=== PATIENT | female | born 1955 | race Caucasian/White ===

== ENCOUNTER 2019-04-11 07:34 | Emergency (ER) | payer OTHER ==
--- NOTE | 2019-04-11 08:25 | RAD ---
RADIOGRAPH CHEST 1 VIEW: DATE: 04/11/2019 HISTORY: 63-year-old female with syncope. Concern for aspiration. FINDINGS: There are no airspace densities, pulmonary edema, pneumothorax, or cardiomegaly. The lateral costophr enic angles are sharp. IMPRESSION: No acute cardiopulmonary findings.
[2019-04-11 08:43] LABS: #Basophils 0.1 thou/uL (0.0-0.2); #Eosinphils 0.1 thou/uL (0.0-0.7); #Lymphocytes 3.2 thou/uL (1.20-3.40); #Monocytes 0.8 thou/uL (0.11-0.59); #Neutrophils 3.3 thou/uL (1.40-6.50); %Basophils 1.2 % (0.0-1.0); %Eosinophils 1.6 % (0.0-10.0); %Lymphocytes 42.8 % (21.0-51.0); %Monocytes 10.1 % (0.0-10.0); %Neutrophils 44.4 % (42.0-75.0); Mean Corpuscular HGB CONC 32.1 g/dL (32.0-36.0); Mean Corpuscular Hemoglobin 31.4 pg (27.0-31.0); Mean Corpuscular Volume 97.9 fL (78.0-98.0); Mean Platelet Volume 8.5 fL (7.4-10.4); Platelet Count 297 thou/uL (130-400); RBC Distribution Width 12.2 % (11.5-14.5); Red Blood Cell (RBC) Count 4.46 mill/uL (4.20-5.40); White Blood Cell (WBC) Count 7.5 thou/uL (4.8-10.8)
--- NOTE | 2019-04-11 08:46 | CT ---
BRAIN CT WITHOUT IV CONTRAST: Date: 04/11/2019 HISTORY: Syncope and dizziness. Fell and hit head, injury. FINDINGS: Minimal motion artifact. No focal mass or midline shift. No intra or extra-axial hemorrhage. Minimal fluid or mucosal changes in the left sphenoid sinus. The mastoids appear clear. IMPRESSION: 1. No significant acute intracranial process. 2. Minimal fluid or mucosal changes in the left sphenoid sinus. POS: OFF
[2019-04-11 08:56] LABS: ALT (SGPT) 58 U/L (8-55); AST (SGOT) 42 U/L (5-34); Albumin 4.2 g/dL (3.4-4.8); Alkaline Phosphatase 102 U/L (40-110); Anion Gap 14 mmol/L (10-20); BUN (Urea Nitrogen) 18 mg/dL (9.8-20.1); Bilirubin, Total 0.6 mg/dL (0.2-1.2); CK (CPK) 58 U/L (29-168); Calc. Creatinine Clearance 0 mL/min (70-130); Calcium 11.2 mg/dL (7.8-10.44); Carbon Dioxide 26 mmol/L (23-31); Chloride 107 mmol/L (98-107); Estimated GFR-MDRD 65; Globulin 3.2 g/dL (2.4-3.5); Glucose 118 mg/dL (80-115); Potassium 4.3 mmol/L (3.5-5.1); Protein, Total 7.4 g/dL (6.0-8.3); Sodium 143 mmol/L (136-145)
== END 2019-04-11 09:18 | disposition home or self-care (01) ==
LOC: ERS 07:34
DX: R55 Syncope and collapse (principal); E78.5 Hyperlipidemia, unspecified; E78.00 Pure hypercholesterolemia, unspecified; I10 Essential (primary) hypertension; Z79.899 Other long term (current) drug therapy
CPT/HCPCS: 36415; 36416; 70450; 71045; 80053; 82550; 83880; 84484; 85025; 93005

== ENCOUNTER 2019-04-12 21:12 | Inpatient (IN) | payer OTHER ==
[2019-04-12 21:27] LABS: #Basophils 0.1 thou/uL (0.0-0.2); #Eosinphils 0.1 thou/uL (0.0-0.7); #Lymphocytes 4.1 thou/uL (1.20-3.40); #Monocytes 0.9 thou/uL (0.11-0.59); #Neutrophils 4.5 thou/uL (1.40-6.50); %Basophils 0.7 % (0.0-1.0); %Eosinophils 1.3 % (0.0-10.0); %Lymphocytes 42.2 % (21.0-51.0); %Monocytes 9.7 % (0.0-10.0); %Neutrophils 46.1 % (42.0-75.0); Hemoglobin 13.6 g/dL (12.0-16.0); Mean Corpuscular HGB CONC 32.1 g/dL (32.0-36.0); Mean Corpuscular Hemoglobin 31.5 pg (27.0-31.0); Mean Corpuscular Volume 97.9 fL (78.0-98.0); Mean Platelet Volume 8.6 fL (7.4-10.4); Platelet Count 292 thou/uL (130-400); RBC Distribution Width 12.1 % (11.5-14.5); Red Blood Cell (RBC) Count 4.31 mill/uL (4.20-5.40); White Blood Cell (WBC) Count 9.7 thou/uL (4.8-10.8)
[2019-04-12] MEDS ORDERED: Amiodarone 150 MG/3 ML VIAL ONE (21:28)
--- NOTE | 2019-04-12 21:33 | RAD ---
Chest AP view INDICATION: Syncopal episode COMPARISON: April 11, 2019 FINDINGS: Lungs:The lungs are clear Cardiac silhouette:The cardiomediastinal silhouette appears within normal limits. Pulmonary vasculature:Normal Pleural spaces:No pleural effusion or pneumothorax is demonstrated. Upper abdomen:No abnormality seen. Osseous structures: No acute osseous abnormality. Additional findings:There is been interval placement of a pacer pad overlying the right upper chest w all. IMPRESSION: No acute cardiopulmonary abnormality.
[2019-04-12 21:52] LABS: ALT (SGPT) 52 U/L (8-55); AST (SGOT) 29 U/L (5-34); Albumin 4.2 g/dL (3.4-4.8); Alkaline Phosphatase 103 U/L (40-110); Anion Gap 13 mmol/L (10-20); BUN (Urea Nitrogen) 12 mg/dL (9.8-20.1); Bilirubin, Total 0.5 mg/dL (0.2-1.2); CK (CPK) 80 U/L (29-168); Calc. Creatinine Clearance 0 mL/min (70-130); Calcium 10.6 mg/dL (7.8-10.44); Carbon Dioxide 22 mmol/L (23-31); Chloride 106 mmol/L (98-107); Estimated GFR-MDRD 69; Globulin 3.4 g/dL (2.4-3.5); Glucose 99 mg/dL (80-115); Potassium 4.1 mmol/L (3.5-5.1); Protein, Total 7.6 g/dL (6.0-8.3); Sodium 137 mmol/L (136-145)
[2019-04-12] MEDS ORDERED: Amiodarone 450 MG, Admixture Fee 1 EACH in Dextrose 5% in Water 250 ML IVPB SCH (22:00)
[2019-04-12] MEDS ORDERED: Triple Antibiotic Oint 1 GM Packet TOP PRN (23:18)
[2019-04-12 23:29] VITALS: BMI 36.0
[2019-04-12] MEDS ORDERED: Aspirin 325 mg Enteric Coated Tablet PO SCH (23:30)
[2019-04-13] MEDS ORDERED: HYDROcodone/Acetaminophen 5/325 mg Tablet PO PRN (00:52)
[2019-04-13] MEDS ORDERED: Acetaminophen 325 MG TAB PO PRN (00:52)
[2019-04-13] MEDS ORDERED: Labetalol HCl 100 MG/20 ML VIAL SLOW IVP PRN (00:55)
[2019-04-13] MEDS ORDERED: Morphine 2 MG/ML SYRINGE SLOW IVP PRN (00:55)
[2019-04-13] MEDS ORDERED: cloNIDine 0.1 MG TAB PO PRN (00:55)
[2019-04-13] MEDS ORDERED: Furosemide 20 MG TAB PO PRN (01:04)
--- NOTE | 2019-04-13 01:14 | PDOC.HHP ---
Hospitalist HPI - History of Present Illness Syncope History of Present Illness: Patient is a 63 year old female with PMH HTN, HLD who presents to ED for syncope , in ED noted to have many runs of NSVT that corresponded with syncopal episodes a few seconds after. Patient says this started yesterday morning and has become more frequent. Home med list reviewed and includes metoprolol. patient had an investigation for arrhthmia 12 years ago but none was found, she does not have mig tig welder and no known heart rhythms. rhythm strips reviewed and polymorphic. reached out to cardiology Dr Quintanilla who agreed to follow with us and requested echo. patient on amiodarone drip started in ED. ED Course: VITAL SIGNS MonApr 12, 2019 22:46 EMMIE Feldman, Bri BP: 152/70 Pulse: 71 Resp: 19 Temp: 98.4 (Oral) Pain: 0 O2 sat: 98 on (2L Oxygen) Time: 04/12/2019 22:46. Hospitalist ROS - Review of Systems Constitutional: denies: fever, chills, sweats, weakness, malaise, other Eyes: denies: pain, vision change, conjunctivae inflammation, eyelid inflammation, redness, other ENT: denies: ear pain, ear discharge, nose pain, nose discharge, nose congestion , mouth pain, mouth swelling, throat pain, throat swelling, other Respiratory: denies: cough, dry, shortness of breath, hemoptysis, SOB with excertion, pleuritic pain, sputum, wheezing, other Cardiovascular: denies: chest pain, palpitations, orthopnea, paroxysmal noc. dyspnea, edema, light headedness, other Gastrointestinal: denies: nausea, vomiting, abdominal pain, diarrhea, constipation, melena, hematochezia, other Genitourinary: denies: dysuria, frequency, incontinence, hematuria, retention, other Musculoskeletal: denies: neck pain, shoulder pain, arm pain, back pain, hand pain, leg pain, foot pain, other Skin: denies: rash, lesions, lurdes, bruising, other Neurological: denies: weakness, numbness, incoordination, change in speech, confusion, seizures, other - Medication Medications: Active Medications Generic Name Dose Route Start Last Admin Trade Name Freq PRN Reason Stop Dose Admin Magnesium Sulfate 2 gm/ Device 50 mls @ 50 mls/hr 04/13/19 01:15 04/13/19 01: 08 IVPB 04/13/19 03:15 50 mls NOW [facility] Administration Hospitalist History - Past Medical History Other Medical History: htn hld - Past Surgical History Other Surgical History: hysterectomy - Family History Family History: reports: no pertinent history - Social History Smoking Status: Never smoker Alcohol: reports: None Drugs: reports: none - Exam General Appearance: NAD, awake alert Eye: PERRL, anicteric sclera ENT: normocephalic atraumatic, no oropharyngeal lesions, moist mucosa Neck: supple, symmetric, no JVD, no thyromegaly, no lymphadenopathy, no carotid bruit Heart: RRR, no murmur, no gallops, no rubs, normal peripheral pulses Respiratory: CTAB, no wheezes, no rales, no ronchi, normal chest expansion, no tachypnea, normal percussion Gastrointestinal: soft, non-tender, non-distended, normal bowel sounds, no palpable masses, no hepatomegaly, no splenomegaly, no bruit Extremities: no cyanosis, no clubbing, no edema Skin: normal turgor, no lesions, no rashes Neurological: cranial nerve grossly intact, normal sensation to touch, no weakness, no focal deficits, no new deficit Musculoskeletal: normal tone, normal strength, no muscle wasting Psychiatric: normal affect, normal behavior, A&O x 3 Hospitalist Results - Labs Result Diagrams: 04/13/19 03:31 04/13/19 03:31 Lab results: WBC 9.7 thou/uL (4.8-10.8) 04/12/19 21:17 Hgb 13.6 g/dL (12.0-16.0) 04/12/19 21:17 Hct 42.2 % (36.0-47.0) 04/12/19 21:17 MCV 97.9 fL (78.0-98.0) 04/12/19 21:17 Plt Count 292 thou/uL (130-400) 04/12/19 21:17 Neutrophils % 46.1 % (42.0-75.0) 04/12/19 21:17 Sodium 137 mmol/L (136-145) 04/12/19 21:17 Potassium 4.1 mmol/L (3.5-5.1) 04/12/19 21:17 Chloride 106 mmol/L (98-107) 04/12/19 21:17 Carbon Dioxide 22 mmol/L (23-31) L 04/12/19 21:17 BUN 12 mg/dL (9.8-20.1) 04/12/19 21:17 Creatinine 0.83 mg/dL (0.6-1.1) 04/12/19 21:17 Glucose 99 mg/dL (80-115) 04/12/19 21:17 Calcium 10.6 mg/dL (7.8-10.44) H 04/12/19 21:17 Total Bilirubin 0.5 mg/dL (0.2-1.2) 04/12/19 21:17 AST 29 U/L (5-34) 04/12/19 21:17 ALT 52 U/L (8-55) 04/12/19 21:17 Alkaline Phosphatase 103 U/L (40-110) 04/12/19 21:17 Creatine Kinase 80 U/L (29-168) 04/12/19 21:17 Troponin I 0.018 ng/mL (< 0.028) 04/12/19 21:17 B-Natriuretic Peptide 116.7 pg/mL (0-100) H 04/12/19 21:17 Serum Total Protein 7.6 g/dL (6.0-8.3) 04/12/19 21:17 Albumin 4.2 g/dL (3.4-4.8) 04/12/19 21:17 - EKG Interpretation EKG: rhythm strip w/ polymorphic VT. Hospitalist H&P A/P - Plan Plan: Patient is a 63 year old female with PMH HTN, HLD who presents to ED for syncope. # syncope - in setting of persistent symptomatic nonsustained polymorphic VT - very dangerous and high risk of arrest, will watch in ICU, pads in place on chest in case of arrest - trend BMP/Mg and give empiric mag sulfate now, with goal K of 4 and Mg of 2 - on amiodarone drip, will give IV metoprolol and restart PO metoprolol as well - discussed with Dr Quintanilla who will see in AM, also consult placed for EP service as well # HTN - PRNs ordered, resume home meds # HLD - continue home medications
[2019-04-13] MEDS ORDERED: Metoprolol Tartrate 100 MG TAB PO SCH ×2 (01:15→09:00)
[2019-04-13] MEDS ORDERED: Magnesium 2 GM/50 ML 2 GM in Premix Bag 1 BAG IVPB SCH (01:15)
[2019-04-13] MEDS ORDERED: Metoprolol Tartrate 5 MG/5 ML VIAL IVP SCH (01:15)
[2019-04-13 04:17] LABS: #Lymphocytes 2.6 thou/uL (1.20-3.40); #Monocytes 0.8 thou/uL (0.11-0.59); #Neutrophils 6.4 thou/uL (1.40-6.50); %Basophils 0.5 % (0.0-1.0); %Eosinophils 0.2 % (0.0-10.0); %Lymphocytes 26.5 % (21.0-51.0); %Monocytes 8.2 % (0.0-10.0); %Neutrophils 64.7 % (42.0-75.0); Hemoglobin 13.1 g/dL (12.0-16.0); Mean Corpuscular HGB CONC 32.2 g/dL (32.0-36.0); Mean Corpuscular Hemoglobin 31.5 pg (27.0-31.0); Mean Platelet Volume 8.9 fL (7.4-10.4); Platelet Count 279 thou/uL (130-400); RBC Distribution Width 11.9 % (11.5-14.5); Red Blood Cell (RBC) Count 4.16 mill/uL (4.20-5.40); White Blood Cell (WBC) Count 9.9 thou/uL (4.8-10.8)
[2019-04-13 04:32] LABS: Anion Gap 11 mmol/L (10-20); BUN (Urea Nitrogen) 10 mg/dL (9.8-20.1); Calc. Creatinine Clearance 114 mL/min (70-130); Calcium 9.9 mg/dL (7.8-10.44); Carbon Dioxide 25 mmol/L (23-31); Chloride 105 mmol/L (98-107); Estimated GFR-MDRD 77; Glucose 110 mg/dL (80-115); Magnesium 2.6 mg/dL (1.6-2.6); Sodium 137 mmol/L (136-145)
[2019-04-13] MEDS: Amiodarone 450 MG in Dextrose 5% in Water 250 ML IVPB SCH ×2 (08:11→22:51)
[2019-04-13 08:55] LABS: Troponin I Less than 0.010 ng/mL (< 0.028)
[2019-04-13] MEDS ORDERED: Lisinopril 20 MG TAB PO SCH (09:00)
[2019-04-13] MEDS ORDERED: Metoprolol Tartrate 50 MG TAB PO SCH (09:00)
--- NOTE | 2019-04-13 09:18 | CON ---
DATE OF CONSULTATION: HISTORY: Zabrina Sanchez is a 63-year-old white female, who had her first episode of syncope on April 11, 2019. Her was here at [facility] with a myocardial infarction. She was in the cafeteria pouring coffee. She became dizzy and then fell to the floor. She was taken to the emergency room. An EKG showed left bundle-branch block. She states her last EKG was probably several years ago and she has never been told that she had an abnormal EKG. She was evaluated in the Emergency Room and then released home. Then, yesterday, she again had an episode of syncope while sitting in her chair at home. Paramedics were called. She was brought to the emergency room. In the emergency room, she was seen to have short runs of ventricular tachycardia and some of the episodes looked like torsade. Rate was approximately 300 per minute. She was started on amiodarone protocol with 150 mg bolus followed by drip. She also at times will have episodes of bradycardia with heart rates in the 50s, on metoprolol 100 b.i.d. She denies any previous cardiac problems. She denies any chest discomfort. At times, she will be short of breath and has started on albuterol neb treatments at home in November 2018. PAST MEDICAL HISTORY: Hypertension, hypercholesterolemia. MEDICATIONS: At home include: 1. Atorvastatin 10 daily. 2. Furosemide 20 mg p.r.n. 3. Lisinopril 20 mg daily. 4. Metoprolol 100 b.i.d. ALLERGIES: NONE. PAST SURGICAL HISTORY: Hysterectomy. SOCIAL HISTORY: She does not smoke or drink. FAMILY HISTORY: Father of myocardial infarction in his 40s. REVIEW OF SYSTEMS: A 10-point review of systems is otherwise unremarkable. PHYSICAL EXAMINATION: VITAL SIGNS: Blood pressure 151/83, pulse of 45. HEENT: PERRL. NECK: Supple. CHEST: Clear. CARDIAC: S1 and S2 normal without any S3, S4, or murmurs. Carotid upstrokes normal without bruits. ABDOMEN: Normal bowel sounds without tenderness. The abdomen is obese. EXTREMITIES: Revealed no clubbing, cyanosis, or edema. NEUROLOGIC: Grossly intact. SKIN: Warm and dry. LABORATORY DATA: EKG reveals normal sinus rhythm with left bundle-branch block. CBC is unremarkable. Sodium 137, potassium 4.0, chloride 105, carbon dioxide 25 , BUN 10, creatinine 0.76. BNP 116.7. Troponin I x1 is normal. IMPRESSION: 1. Ventricular tachycardia with rate of 300 per minute with at times looking like torsades de pointes. 2. Left bundle branch block, which apparently is new since she has never been told that her EKG has been abnormal in the past. 3. Hypertension. 4. Bradycardia with heart rates into the 40s at times. 6. Positive family of CAD. 5. Hypercholesterolemia. 7. Obesity. RECOMMENDATIONS: Another set of cardiac enzymes will be ordered. Echocardiogram will be performed. Fasting lipid profile will be performed. She is bradycardic at times and certainly may have left ventricular dysfunction, so I will change her to lower beta blocking with carvedilol and increase her lisinopril to b.i.d. With this arrhythmia, her coronary arteries need to be evaluated to rule out ischemia as a cause of this arrhythmia. Risks of cardiac catheterization were discussed including , myocardial infarction, dye reaction, vascular injury, CVA, transfusion, limb loss, renal loss, etc. Also risk of intervention with PTCA and stent placement were discussed including , myocardial infarction, emergent CABG, restenosis, stent thrombosis, vessel perforation, etc. She has never had gastrointestinal bleeding or stroke. She has no upcoming surgical procedures planned and a drug-eluting stent will be placed if needed. She certainly may require a biventricular defibrillator. She will be continued on the amiodarone. Job ID: [id number] [facility]
[2019-04-13] MEDS: Polyethylene Glycol 3350 17 GM Packet PO SCH (09:26)
[2019-04-13] MEDS: Lisinopril 20 MG TAB PO SCH ×3 (09:45→22:12)
[2019-04-13] MEDS: Atorvastatin Calcium 10 MG TAB PO SCH (09:45)
[2019-04-13] MEDS: Enoxaparin Sodium 40 MG/0.4 ML SYRINGE SC SCH (09:46)
[2019-04-13] MEDS ORDERED: Communication Order-Pharmacy FS SCH (11:30)
--- NOTE | 2019-04-13 15:32 | CON ---
DATE OF CONSULTATION: 04/13/2019 SERVICE: Pulmonary Medicine. REASON FOR CONSULTATION: ICU patient. HISTORY OF PRESENT ILLNESS: The patient is a 63-year-old white female with past medical history significant for essentially nothing. She presented to the emergency department because of a couple of syncopal events that happened recently. The first one happened while she was visiting her in the hospital. She was taken down to the emergency department. She was put on telemetry for a period of time, but no abnormalities were identified and she was subsequently discharged home. Shortly after she got home, she had a larger syncopal event. There was concern that she may have even lost pulse briefly. Either way, she did wake back up. In the emergency department, she was discovered to have ventricular tachycardia that was coming and going. There was a torsades morphology. She was started on amiodarone drip, and tucked into the ICU. Pulmonary will follow along while she remains in-house. PAST MEDICAL HISTORY: 1. Hypertension. 2. Dyslipidemia. PAST SURGICAL HISTORY: Hysterectomy. FAMILY HISTORY: Noncontributory. SOCIAL HISTORY: Negative for alcohol, tobacco, or illicit drug use. She is a lifelong nonsmoker and has no exposure to chemicals, dust, asbestos, or tuberculosis. ALLERGIES: NO KNOWN DRUG ALLERGIES. MEDICATIONS: List of her inpatient medications was reviewed. No specific updates were made at this time. REVIEW OF SYSTEMS: General, head, ears, eyes, nose, throat, cardiovascular, respiratory, GI, , musculoskeletal, neurologic, and skin is negative except as mentioned in the HPI. PHYSICAL EXAMINATION: VITAL SIGNS: Afebrile; pulse 49; blood pressure 106/88; respirations 19; and saturation 97%, currently on 2 L nasal cannula. GENERAL: The patient is awake and alert, in no apparent distress. LUNGS: Wonderful air entry. No crackles, wheezing, or rhonchi are appreciated. HEART: Bradycardic. Regular. ABDOMEN: Soft, nontender, and nondistended. Bowel sounds are positive. MUSCULOSKELETAL: No cyanosis or clubbing. No pitting in bilateral lower extremities. NEUROLOGIC: Grossly nonfocal. LABORATORY DATA: WBC 9.9, hemoglobin 13.1, and platelets 279,000. Basic metabolic profile and liver function studies are unremarkable. BNP 116. Troponin negative x2. IMAGING DATA: 1. Chest x-ray demonstrates no acute cardiopulmonary abnormality. Pacer pads overlying chest. Soft tissue attenuation is present. 2. Echocardiogram demonstrates reduced ejection fraction. ASSESSMENT: 1. Syncope secondary to nonsustained ventricular tachycardia with torsades morphology. 2. Systolic heart failure, likely chronic. 3. Obstructive sleep apnea, likely. DISCUSSION AND PLAN: The patient will remain in the ICU until her cardiac catheterization can be arranged. She is currently on an amiodarone drip and has no specific complaints. I encouraged her discuss either nocturnal oximetry screen for sleep apnea or an actual polysomnogram when she leaves the hospital. Pulmonary will follow in this location, but I think given the severity of her underlying illness and multiple syncopal events, staying in the ICU would be prudent. 70 minutes have been devoted to this patient in various activities. I personally reviewed all imaging studies and laboratory data noted within this document. For fifty percent of this time, I was interacting with the patient at the bedside or coordinating care with the care team. For the remainder of the time I was immediately available to the patient in the hospital unit. Job ID: [id number] [facility]
[2019-04-13] MEDS: Carvedilol 6.25 MG TAB PO SCH (16:20)
[2019-04-14 03:58] LABS: #Basophils 0.1 thou/uL (0.0-0.2); #Eosinphils 0.1 thou/uL (0.0-0.7); #Lymphocytes 3.2 thou/uL (1.20-3.40); #Monocytes 1.2 thou/uL (0.11-0.59); %Basophils 0.7 % (0.0-1.0); %Eosinophils 1.1 % (0.0-10.0); %Lymphocytes 30.1 % (21.0-51.0); %Monocytes 11.1 % (0.0-10.0); %Neutrophils 57.1 % (42.0-75.0); Hemoglobin 12.8 g/dL (12.0-16.0); Mean Corpuscular HGB CONC 31.7 g/dL (32.0-36.0); Mean Corpuscular Volume 97.7 fL (78.0-98.0); Mean Platelet Volume 9.1 fL (7.4-10.4); Platelet Count 231 thou/uL (130-400); Red Blood Cell (RBC) Count 4.14 mill/uL (4.20-5.40); White Blood Cell (WBC) Count 10.5 thou/uL (4.8-10.8)
[2019-04-14 04:17] LABS: Anion Gap 12 mmol/L (10-20); BUN (Urea Nitrogen) 12 mg/dL (9.8-20.1); Calc. Creatinine Clearance 110 mL/min (70-130); Calcium 9.9 mg/dL (7.8-10.44); Carbon Dioxide 22 mmol/L (23-31); Cardiac Risk 3.7 (Less than 4.5); Chloride 106 mmol/L (98-107); Cholesterol 142 mg/dl (< 200 Desired); Estimated GFR-MDRD 74; Glucose 101 mg/dL (80-115); HDL Cholesterol 38 mg/dL (>60 Neg Risk); LDL Cholesterol, Calculated 85 mg/dL; Magnesium 2.3 mg/dL (1.6-2.6); Potassium 3.9 mmol/L (3.5-5.1); Sodium 136 mmol/L (136-145); Triglycerides 93 mg/dL (Less than 150)
[2019-04-14] MEDS: Atorvastatin Calcium 10 MG TAB PO SCH (09:08)
[2019-04-14] MEDS: Enoxaparin Sodium 40 MG/0.4 ML SYRINGE SC SCH (09:09)
[2019-04-14] MEDS: Lisinopril 20 MG TAB PO SCH ×2 (09:09→20:53)
[2019-04-14] MEDS: Polyethylene Glycol 3350 17 GM Packet PO SCH (09:09)
--- NOTE | 2019-04-14 10:04 | PRG ---
DATE OF SERVICE: 04/14/2019 SUBJECTIVE: She feels better today. No chest discomfort or dyspnea has improved. She has no orthopnea or edema. No syncope or falls. OBJECTIVE: GENERAL: Well dressed and groomed, in no apparent distress. VITAL SIGNS: Temperature 98.1, blood pressure 108/53, pulse 50, respiratory rate 12, oxygen saturation 95% on 2 L nasal cannula. HEENT: No lesions. Sclerae are clear. SKIN: No lesions. CARDIOVASCULAR: Regular rate and rhythm. No murmurs, gallops, or rubs. LUNGS: Clear to auscultation bilaterally. Normal respiratory effort. EXTREMITIES: No cyanosis, clubbing, or edema. DIAGNOSTIC STUDIES: Telemetry, sinus rhythm. IMPRESSION: 1. Syncope due to polymorphic ventricular tachycardia, which was documented during a syncopal episode on telemetry. 2. Acute on chronic systolic heart failure. 3. Left bundle-branch block. 4. Sick sinus syndrome with symptomatic bradycardia, need for pacemaker support. Recommend await cardiac catheterization results tomorrow as performed by Dr. Quintanilla. PLAN: 1. EDUCATION COURSES SALES REPRESENTATIVE-D implantation tomorrow based on the results of the catheterization. 2. Hold Lovenox after this morning's dose. Job ID: [id number]
[2019-04-14] MEDS ORDERED: Aspirin 325 MG TAB PO SCH (10:45)
[2019-04-14] MEDS: Carvedilol 6.25 MG TAB PO SCH (10:46)
[2019-04-14] MEDS: Amiodarone 450 MG in Dextrose 5% in Water 250 ML IVPB SCH (11:31)
--- NOTE | 2019-04-14 11:34 | PDOC.HOSPP ---
- Subjective Subjective: Seen and examined in the intensive care unit. Breathing comfortably on room air. Slept well. No acute complaints this morning and states that she is feeling better. Echocardiogram with reduced ejection fraction. Patient with bradycardia, and episodes of ventricular tachycardia with syncopal episodes. May benefit from pacemaker placement. - Objective Vital Signs & Weight: Vital Signs (12 hours) Temp BP Pulse Ox 04/14/19 10:46 116/56 L 04/14/19 09:09 116/56 L 04/14/19 08:00 98.1 F 95 04/14/19 04:00 98.8 F 04/14/19 00:00 98.7 F Weight Admit Weight 209 lb 14.081 oz Weight 209 lb 14.081 oz Most Recent Monitor Data Heart Rate from ECG 51 NIBP 130/57 NIBP BP-Mean 81 Respiration from ECG 20 SpO2 94 I&O: 04/13/19 04/14/19 04/15/19 06:59 06:59 06:59 Intake Total 244 1497.1 325 Output Total 400 1120 0 Balance -156 377.1 325 Result Diagrams: 04/14/19 03:31 04/14/19 03:31 Radiology Reviewed by me: Yes Hospitalist ROS - Review of Systems All other systems reviewed; all pertinent +/- noted in HPI/Subj - Medication Medications: Active Medications Generic Name Dose Route Start Last Admin Trade Name Freq PRN Reason Stop Dose Admin Acetaminophen 650 mg 04/13/19 00:52 04/13/19 21:15 Tylenol PO 650 mg Q4H PRN Administration Headache/Fever/Mild Pain (1-3) Aspirin 325 mg 04/14/19 10:45 04/14/19 10:58 Aspirin PO 04/14/19 12:00 325 mg 1045 KAYCEE Administration Atorvastatin Calcium 10 mg 04/13/19 09:00 04/14/19 09:08 Lipitor PO 10 mg DAILY KAYCEE Administration Amiodarone HCl 450 mg/ 259 mls @ 0 mls/hr 04/13/19 01:00 04/14/19 11:31 Dextrose/Water IVPB 259 mls INF KAYCEE Administration Protocol Per Protocol Lisinopril 20 mg 04/13/19 09:00 04/14/19 09:09 Zestril PO 20 mg BID KAYCEE Administration Pantoprazole Sodium 40 mg 04/13/19 09:00 04/14/19 09:09 Protonix PO 40 mg DAILY KAYCEE Administration Polyethylene Glycol 17 gm 04/13/19 09:00 04/14/19 09:09 Miralax PO 17 gm DAILY KAYCEE Administration - Exam General Appearance: NAD, awake alert Eye: anicteric sclera ENT: normocephalic atraumatic, moist mucosa Neck: supple, symmetric, no lymphadenopathy Heart: no murmur, no gallops, no rubs Respiratory: CTAB, no wheezes, no rales, no tachypnea Gastrointestinal: soft, non-tender, no rigidity Extremities: no edema Skin: no lesions Neurological: cranial nerve grossly intact, no focal deficits Musculoskeletal: no muscle wasting Psychiatric: normal affect, A&O x 3 Hosp A/P (1) Sick sinus syndrome Code(s): I49.5 - SICK SINUS SYNDROME Status: Acute (2) CHF (congestive heart failure) Code(s): I50.9 - HEART FAILURE, UNSPECIFIED Status: Acute (3) Syncope and collapse Code(s): R55 - SYNCOPE AND COLLAPSE Status: Acute (4) Ventricular tachycardia Code(s): I47.2 - VENTRICULAR TACHYCARDIA Status: Acute (5) HTN (hypertension) Code(s): I10 - ESSENTIAL (PRIMARY) HYPERTENSION Status: Acute (6) HLD (hyperlipidemia) Code(s): E78.5 - HYPERLIPIDEMIA, UNSPECIFIED Status: Acute - Plan Plan: intensive care unit cardiology consultation, recommendations appreciated treasury specialist consultation, recommendations appreciated pulmonology consultation, recommendations appreciated plan for cardiac catheterization the a.m. echocardiogram with a reduced ejection fraction of 45% may require pacemaker pending EP eval and cath results blood pressure control blood sugar control DVT prophylaxis G.I. prophylaxis
--- NOTE | 2019-04-14 15:12 | PRG ---
DATE OF SERVICE: 04/14/2019 SERVICE: Pulmonary Medicine. INTERVAL HISTORY: The patient is doing great from respiratory standpoint. She has not had any additional ventricular ectopy. That being said, she remains in a sinus bradycardia. Coreg was held this morning. She is alert. No other complaints. She is waiting for cardiac catheterization which is being scheduled for tomorrow. PHYSICAL EXAMINATION: VITAL SIGNS: Afebrile, pulse 48, blood pressure 114/57, respirations 19, saturation 94%, currently on 2 L nasal cannula. GENERAL: The patient is awake and alert, in no apparent distress. LUNGS: One full air entry with no prolonged expiratory phase or wheezing. HEART: Normal rate, regular. ABDOMEN: Soft, nontender, nondistended, bowel sounds are positive. MUSCULOSKELETAL: No cyanosis or clubbing. No pitting in the bilateral lower extremities. NEUROLOGIC: Grossly nonfocal. LABORATORY DATA: WBC 10.5, hemoglobin 12.8, and platelets 231,000. Basic metabolic profile is otherwise unremarkable. Troponin is below the assay limit of 0.10. ASSESSMENT: 1. Syncope secondary to nonsustained ventricular tachycardia with torsades morphology. 2. Chronic systolic heart failure, suspected. 3. Obstructive sleep apnea, likely. DISCUSSION AND PLAN: The patient is doing fine from respiratory standpoint. She will be moving down for cardiac catheterization likely in the morning. She will remain on the amiodarone drip. Blood pressures remain firm despite having a little bradycardia. Pulmonary/Critical Care will continue to follow closely. Job ID: [id number]
--- NOTE | 2019-04-14 15:55 | CON ---
DATE OF CONSULTATION: 04/13/2019 PRIMARY CARE PHYSICIAN: Domingo Stanley. REFERRING SPORTS MARKETING SPECIALIST: Darryl Quintanilla MD REASON FOR CONSULTATION: Syncope, polymorphic ventricular tachycardia. HISTORY OF PRESENT ILLNESS: Ms. Sanchez is a pleasant 63-year-old white female with a history of hypertension. She has had three episodes of syncope in the last 3 days. Her was hospitalized here 3 days ago. She was in the cafeteria pouring herself some coffee and had a syncopal episode without prodrome. She was evaluated in the emergency department and released. At home, she had another syncopal episode, where she felt flushed and hot feeling in her head. She had a brief syncopal episode while sitting in her recliner and had loss of bladder function. On admission here, she had episode of documented polymorphic ventricular tachycardia associated with syncope. Again, she had a prodrome of feeling flushed and fullness in her head. She was started on amiodarone and placed in the ICU. In addition, she has been bradycardic. Current heart rate is 46. She has not had any atrial arrhythmias. She has moderate daily fatigue. No exacerbating or alleviating factors. She has mild exertional dyspnea that is relieved with rest. This is chronic and is unchanged recently. She is not on any medications that would cause her to have polymorphic ventricular tachycardia. Electrolytes were normal. PAST MEDICAL HISTORY: 1. Hypertension. 2. Dyslipidemia. PAST SURGICAL HISTORY: Hysterectomy. FAMILY HISTORY: Negative for sudden cardiac . SOCIAL HISTORY: She is . They live [place], they have horses. She is very active with her horses and her garden. Her is being evaluated for CABG next week. She has never smoked. No alcohol. 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 ALLERGIES: NO KNOWN DRUG ALLERGIES. MEDICATIONS: Reviewed. REVIEW OF SYSTEMS: No fever, chills, orthopnea, edema, seizures, stroke, melena , bright red blood per rectum, hematemesis, unilateral weakness or numbness, speech deficits. PHYSICAL EXAMINATION: GENERAL: Alert and oriented x4. No apparent distress. Well dressed and groomed. VITAL SIGNS: Afebrile. Blood pressure 121/61, pulse 45, respiratory rate 12. WBC 9.9, hemoglobin 13.1, platelets 279. Sodium 137, potassium 4.0, BUN 10, creatinine 0.7, glucose 110. EKG, sinus bradycardia with left bundle branch block. QRS duration 120 milliseconds. Echocardiogram, April 13, 2019, mild left atrial enlargement. Ejection fraction 45% to 50% with normal valves. IMPRESSION AND PLAN: 1. Syncope, three episodes in the last three days. 2. Polymorphic ventricular tachycardia, no reversible causes identified. 3. Chronic systolic heart failure due to cardiomyopathy. Mildly depressed left ventricular function. 4. LBBB RECOMMENDATIONS: Catheterization is planned by Dr. Quintanilla on Monday. Based on the results of the catheterization, we will plan FITNESS TECHNICIAN-D therapy if there is no percutaneous coronary intervention. I have discussed risks, benefits, and alternatives of ICD implantation including, but not limited to myocardial infarction, stroke, , pneumothorax, need for chest tube placement, lead dislodgement, arm swelling due to thrombosis, pain, infection, need for device removal. She is agreeable to proceed. We have participated in shared decision making. Job ID: [id number] [facility]
[2019-04-14] MEDS ORDERED: Carvedilol 6.25 MG TAB PO SCH (17:00)
[2019-04-14] MEDS ORDERED: Carvedilol 3.125 MG TAB PO SCH (20:45)
[2019-04-15] MEDS: Amiodarone 450 MG in Dextrose 5% in Water 250 ML IVPB SCH (03:04)
[2019-04-15 03:48] LABS: #Basophils 0.1 thou/uL (0.0-0.2); #Eosinphils 0.1 thou/uL (0.0-0.7); #Lymphocytes 2.7 thou/uL (1.20-3.40); #Monocytes 1.1 thou/uL (0.11-0.59); %Basophils 0.6 % (0.0-1.0); %Eosinophils 1.5 % (0.0-10.0); %Lymphocytes 27.2 % (21.0-51.0); %Monocytes 10.9 % (0.0-10.0); %Neutrophils 59.9 % (42.0-75.0); Hemoglobin 12.5 g/dL (12.0-16.0); Mean Corpuscular HGB CONC 30.9 g/dL (32.0-36.0); Mean Corpuscular Hemoglobin 29.8 pg (27.0-31.0); Mean Corpuscular Volume 96.4 fL (78.0-98.0); Mean Platelet Volume 9.1 fL (7.4-10.4); Platelet Count 237 thou/uL (130-400); RBC Distribution Width 11.9 % (11.5-14.5); Red Blood Cell (RBC) Count 4.18 mill/uL (4.20-5.40)
[2019-04-15 03:55] LABS: Prothrombin Time 13.6 SEC (12.0-14.7)
[2019-04-15 04:07] LABS: Anion Gap 11 mmol/L (10-20); BUN (Urea Nitrogen) 11 mg/dL (9.8-20.1); Calc. Creatinine Clearance 110 mL/min (70-130); Carbon Dioxide 26 mmol/L (23-31); Chloride 106 mmol/L (98-107); Estimated GFR-MDRD 74; Glucose 93 mg/dL (80-115); Magnesium 2.2 mg/dL (1.6-2.6); Potassium 3.7 mmol/L (3.5-5.1); Sodium 139 mmol/L (136-145)
[2019-04-15] MEDS: Carvedilol 3.125 MG TAB PO SCH ×2 (05:51→20:54)
[2019-04-15] MEDS: Lisinopril 20 MG TAB PO SCH ×2 (05:51→20:54)
[2019-04-15] MEDS: Atorvastatin Calcium 10 MG TAB PO SCH (05:52)
[2019-04-15] MEDS ORDERED: Sodium Chloride 0.9% 1,000 ML IV SCH ×2 (06:00→14:05)
[2019-04-15] MEDS ORDERED: Aspirin 325 mg Enteric Coated Tablet PO SCH (09:00)
[2019-04-15] MEDS: Polyethylene Glycol 3350 17 GM Packet PO SCH (09:00)
[2019-04-15] MEDS ORDERED: PROPOFOL 200 MG/20 ML VIAL ONE (09:05)
[2019-04-15] MEDS ORDERED: PHENYLEPHRINE-NS 100 MCG/ML 10 ML SYRINGE ONE (09:05)
[2019-04-15] MEDS ORDERED: Iopamidol 370 76% 100 ML VIAL ONE (12:01)
[2019-04-15] MEDS ORDERED: Heparin 10,000 UNITS/1 ML VIAL ONE (12:11)
[2019-04-15] MEDS ORDERED: Lidocaine 1% (PF) 30 ML VIAL ONE (12:15)
[2019-04-15] MEDS ORDERED: Fentanyl 100 MCG/2 ML VIAL ONE ×3 (12:49→17:44)
[2019-04-15] MEDS ORDERED: Midazolam HCl 2 mg/2 ml Vial ONE ×3 (12:49→17:44)
[2019-04-15] MEDS ORDERED: hydrALAZINE 20 MG/ML VIAL ONE (13:12)
[2019-04-15] MEDS ORDERED: Acetaminophen/Codeine 30-300mg Tablet PO PRN ×2 (14:03)
[2019-04-15] MEDS ORDERED: Sodium Chloride 0.9% 200 ML IV PRN (14:03)
--- NOTE | 2019-04-15 14:13 | PRG ---
DATE OF SERVICE: 04/15/2019 SERVICE: Pulmonary Medicine. INTERVAL HISTORY: Yesterday, the patient was doing fantastic. She ended up getting up to the bathroom. She had a run of ventricular tachycardia. She got lightheaded, but this time she did not pass out. Ultimately, she was put back in bed, she is now on bed rest. She is not exactly excited about that. That being said, she understands our precautions. Otherwise, there are no fevers, chills, cough, sputum production, nausea, vomiting, or diarrhea happened overnight. PHYSICAL EXAMINATION: VITAL SIGNS: Afebrile, pulse 60, blood pressure 166/82, respirations 16, saturations 94%, currently on room air. GENERAL: The patient is awake and alert, in no apparent distress. LUNGS: Wonderful air entry. No prolonged expiratory phase or wheezing is present. HEART: Normal rate, regular. ABDOMEN: Soft, nontender, and nondistended. Bowel sounds are positive. MUSCULOSKELETAL: No cyanosis or clubbing. No pitting in the bilateral lower extremities. NEUROLOGIC: Grossly nonfocal. LABORATORY DATA: WBC 10.0, hemoglobin 12.5, platelets 237,000. INR 1.0. Basic metabolic profile is completely unremarkable. ASSESSMENT: 1. Syncope secondary to presumed ventricular tachycardia with torsades morphology. 2. Chronic systolic heart failure. 3. Obstructive sleep apnea. DISCUSSION AND PLAN: The patient is doing fine from respiratory standpoint. At this point, she will remain in the ICU until cleared for transition to the telemetry unit by either EP or Cardiology. I will continue to follow if she remains in this location. When she arrives on the floor, I will sign off. Job ID: [id number]
[2019-04-15] MEDS ORDERED: Iopamidol 370 76% 50 ML VIAL FS ONE (14:23)
[2019-04-15] MEDS: hydrALAZINE 20 MG/ML VIAL SLOW IVP PRN ×2 (14:38→20:55)
[2019-04-15] MEDS ORDERED: Loratadine 10 MG TAB PO SCH (14:45)
[2019-04-15] MEDS ORDERED: Vancomycin 1.5 GRAM/300 ML BAG 1.5 GM in Premix Bag 1 BAG IVPB SCH (16:00)
--- NOTE | 2019-04-15 16:59 | PDOC.HOSPP ---
- Subjective Encounter Date: 04/15/19 Encounter Time: 08:00 Subjective: Overnight had another vtach run and dizziness episode. This morning, laying in bed comfortably and has no complaints. Pending cardiac catheter - Objective Vital Signs & Weight: Vital Signs (12 hours) Temp Pulse BP Pulse Ox 04/15/19 16:00 98.4 F 04/15/19 14:38 71 182/72 H 04/15/19 12:00 98.5 F 04/15/19 08:00 98.4 F 96 04/15/19 05:51 136/71 Weight Admit Weight 209 lb 14.081 oz Weight 209 lb 14.081 oz Most Recent Monitor Data Heart Rate from ECG 90 NIBP 165/72 NIBP BP-Mean 103 Respiration from ECG 17 SpO2 93 I&O: 04/14/19 04/15/19 04/16/19 06:59 06:59 06:59 Intake Total 1497.1 903 0 Output Total 1120 1425 845 Balance 377.1 -522 -845 Result Diagrams: 04/15/19 03:17 04/15/19 03:17 Hospitalist ROS - Review of Systems Respiratory: denies: cough, dry, shortness of breath, hemoptysis, SOB with excertion, pleuritic pain, sputum, wheezing, other Cardiovascular: denies: chest pain, palpitations, orthopnea, paroxysmal noc. dyspnea, edema, light headedness, other Gastrointestinal: denies: nausea, vomiting, abdominal pain, diarrhea, constipation, melena, hematochezia, other Genitourinary: denies: dysuria, frequency, incontinence, hematuria, retention, other Neurological: denies: weakness, change in speech - Medication Medications: Active Medications Generic Name Dose Route Start Last Admin Trade Name Freq PRN Reason Stop Dose Admin Acetaminophen 650 mg 04/13/19 00:52 04/13/19 21:15 Tylenol PO 650 mg Q4H PRN Administration Headache/Fever/Mild Pain (1-3) Carvedilol 3.125 mg 04/15/19 08:00 04/15/19 05:51 Coreg PO 3.125 mg BID-WM KAYCEE Administration Hydralazine HCl 10 mg 04/13/19 00:55 04/15/19 14:38 Apresoline SLOW IVP 10 mg Q6H PRN Administration SBP GREATER THAN 160 Amiodarone HCl 450 mg/ 259 mls @ 0 mls/hr 04/13/19 01:00 04/15/19 03:04 Dextrose/Water IVPB 259 mls INF KAYCEE Administration Protocol Per Protocol Sodium Chloride 1,000 mls @ 125 mls/hr 04/15/19 14:05 04/15/19 14:55 Normal Saline 0.9% IV 04/15/19 20:00 1,000 mls .Q8H KAYCEE Administration Vancomycin HCl 1.5 gm/ Device 300 mls @ 200 mls/hr 04/15/19 16:00 04/15/19 16 :14 IVPB 04/15/19 18:00 300 mls 1600 KAYCEE Administration Lisinopril 20 mg 04/13/19 09:00 04/15/19 05:51 Zestril PO 20 mg BID KAYCEE Administration Pantoprazole Sodium 40 mg 04/13/19 09:00 04/15/19 05:51 Protonix PO 40 mg DAILY KAYCEE Administration Polyethylene Glycol 17 gm 04/13/19 09:00 04/15/19 09:00 Miralax PO Not Given DAILY KAYCEE - Exam General Appearance: NAD, awake alert Eye: PERRL Neck: supple, symmetric, no JVD Heart: RRR, no murmur, no gallops, no rubs, normal peripheral pulses Respiratory: CTAB, no wheezes, no rales, no ronchi, normal chest expansion, no tachypnea, normal percussion Gastrointestinal: soft, non-tender, non-distended, normal bowel sounds, no palpable masses, no hepatomegaly, no splenomegaly, no bruit Extremities: no edema Neurological: cranial nerve grossly intact, no weakness, no focal deficits Psychiatric: normal affect, normal behavior, A&O x 3 Hosp A/P - Plan plan for cardiac catheterization the a.m. echocardiogram with a reduced ejection fraction of 45% may require pacemaker pending EP eval and cath results
[2019-04-15] MEDS ORDERED: Propofol 500 MG/50 ML VIAL ONE (17:45)
[2019-04-15] MEDS ORDERED: Ketamine 50 MG/ML (10ML VIAL) ONE (17:45)
[2019-04-15] MEDS ORDERED: Glycopyrrolate 0.2 MG/ML 5 ML SYRINGE ONE (17:45)
[2019-04-15] MEDS ORDERED: CEFAZOLIN 1 GM VIAL ONE (18:00)
[2019-04-15] MEDS ORDERED: Gentamicin 80 MG/2 ML VIAL ONE (18:00)
[2019-04-15] MEDS ORDERED: Phenylephrine HCL 10 MG/ML VIAL ONE (18:31)
[2019-04-15] MEDS ORDERED: Promethazine HCl 25 MG/ML VIAL SLOW IVP PRN (19:04)
[2019-04-15] MEDS ORDERED: Ondansetron HCl/PF 4 MG/2 ML Vial IVP PRN (19:04)
[2019-04-15] MEDS ORDERED: Promethazine HCl 25 MG/ML VIAL IM PRN (19:04)
[2019-04-15] MEDS ORDERED: HYDROcodone/Acetaminophen 5/325 mg Tablet PO PRN ×2 (20:45)
--- NOTE | 2019-04-15 21:14 | RAD ---
CHEST ONE VIEW: Comparison: 04-12-2019 History: Status post cardiac device placement. FINDINGS: Interval placement of left sided transvenous defibrillator with lead position in the right atrium, co ronary sinus, and right ventricle. Normal cardiac silhouette. Atherosclerosis of the aorta. Costophre winston angles are clear. No masses or consolidation. No pneumothorax or acute osseous abnormalities. IMPRESSION: Interval placement of a left sided transvenous defibrillator. No pneumothorax. POS: [facility]
[2019-04-16 03:56] LABS: #Lymphocytes 1.2 thou/uL (1.20-3.40); #Monocytes 0.8 thou/uL (0.11-0.59); #Neutrophils 10.7 thou/uL (1.40-6.50); %Basophils 0.3 % (0.0-1.0); %Eosinophils 0.1 % (0.0-10.0); %Lymphocytes 9.3 % (21.0-51.0); %Monocytes 6.4 % (0.0-10.0); Hemoglobin 13.1 g/dL (12.0-16.0); Mean Corpuscular HGB CONC 32.7 g/dL (32.0-36.0); Mean Corpuscular Hemoglobin 31.4 pg (27.0-31.0); Mean Platelet Volume 9.4 fL (7.4-10.4); Platelet Count 215 thou/uL (130-400); Red Blood Cell (RBC) Count 4.16 mill/uL (4.20-5.40); White Blood Cell (WBC) Count 12.8 thou/uL (4.8-10.8)
[2019-04-16 04:22] LABS: Anion Gap 12 mmol/L (10-20); BUN (Urea Nitrogen) 10 mg/dL (9.8-20.1); Calc. Creatinine Clearance 112 mL/min (70-130); Calcium 10.5 mg/dL (7.8-10.44); Carbon Dioxide 20 mmol/L (23-31); Chloride 108 mmol/L (98-107); Estimated GFR-MDRD 76; Glucose 100 mg/dL (80-115); Magnesium 2.1 mg/dL (1.6-2.6); Sodium 136 mmol/L (136-145)
[2019-04-16 08:09] VITALS: TEMP 98.7
--- NOTE | 2019-04-16 08:33 | PRG ---
DATE OF SERVICE: 04/16/2019 SUBJECTIVE: No complaints today. She is lying flat and comfortable. No chest discomfort, dyspnea, syncope, or falls. OBJECTIVE: VITAL SIGNS: Afebrile. Blood pressure 120/52, pulse 74, respiratory rate 12, oxygen saturation 94% on room air. HEENT: No lesions. Sclerae are clear. SKIN: No lesions. Incision well healing. No hematoma. DIAGNOSTIC STUDIES: Telemetry, sinus rhythm. IMPRESSION AND PLAN: 1. Polymorphic ventricular tachycardia. 2. Chronic systolic heart failure with mildly depressed left ventricular systolic function. 3. Left bundle branch block. 4. 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 Chest x-ray shows no complications. RECOMMENDATION: 1. We will set her lower rate limit at 80 beats per minute. 2. Okay to discharge home from a cardiac electrophysiology standpoint. We will see her back in 2 weeks for wound check. We will arrange her visit. 3. Continue Coreg 25 mg b.i.d. Job ID: [id number]
[2019-04-16] MEDS ORDERED: Loratadine 10 MG TAB PO SCH (09:00)
[2019-04-16] MEDS: Carvedilol 3.125 MG TAB PO SCH (09:19)
[2019-04-16] MEDS: Lisinopril 20 MG TAB PO SCH (09:20)
[2019-04-16] MEDS: Polyethylene Glycol 3350 17 GM Packet PO SCH (09:21)
--- NOTE | 2019-04-16 13:09 | PRG ---
DATE OF SERVICE: 04/16/2019 SERVICE: Pulmonary Medicine. INTERVAL HISTORY: The patient is doing really well from respiratory standpoint. No additional ventricular tachycardia events have occurred. She is relying on a pacemaker. Otherwise, there has been no interval change to her condition. PHYSICAL EXAMINATION: VITAL SIGNS: Afebrile; pulse 90; blood pressure 125/74; respirations 24; and saturation 96%, currently on room air. HEENT: Normocephalic and atraumatic. Sclerae are white. Conjunctivae are pink. Oral and nasal mucosa are moist without lesions. LUNGS: Very good air entry with no prolonged expiratory phase or wheezing present. HEART: Normal rate, regular. ABDOMEN: Soft, nontender, and nondistended. Bowel sounds are positive. MUSCULOSKELETAL: No cyanosis or clubbing. No pitting in bilateral lower extremities. NEUROLOGIC: Grossly nonfocal. LABORATORY DATA: WBC 12.8 and up-trending, hemoglobin 13.1, and platelets 215,000. Basic metabolic profile is unremarkable except for calcium of 10.5. Magnesium is normal at 2.1. IMAGING DATA: Chest x-ray demonstrates new placement of an AICD/pacemaker. No pneumothorax is identified. ASSESSMENT: 1. Syncope secondary to the polymorphic ventricular tachycardia. 2. Chronic systolic heart failure. 3. Obstructive sleep apnea. DISCUSSION AND PLAN: At this point, the patient has no further requirements for ICU last admission. She can be transitioned to the telemetry unit or discharged home per Cardiology's recommendations. At this point, I will sign off. Please call with additional questions or concerns through time. Job ID: [id number]
[2019-04-16 14:46] VITALS: BP 121/60
--- NOTE | 2019-04-17 04:00 | PQF ---
CASANDRA MORALES THOMAS MD [id number] CLINICAL DOCUMENTATION CLARIFICATION FORM: POST DISCHARGE Addendum to original discharge summary date: ____ Late entry note date: __ DATE:04/17/2019 ATTN: Solo Salvador Please exercise your independent, professional judgment in responding to the clarification form. Clinical indicators are provided on the bottom of this form for your review Please check appropriate box(s): Conflicting documentation was noted in the Medical Record, please clarify if patient is being treated/monitored for: [ ] Acute on Chronic systolic heart failure [ ] Chronic systolic heart failure [ ] Other diagnosis [ ] Unable to determine In addition, please specify: Present on Admission (POA): [ ] Yes [ ] No [ ] Unable to determine For continuity of documentation, please document condition throughout progress notes and discharge summary. Thank You. CLINICAL INDICATORS - SIGNS / SYMPTOMS/ LABS Laboratory Chemistry 04/12 BNP 116.7 Cardiology Consult p2 04/13 Dr Chaves she had episode of documented polymorphic ventricular tachycardia associated with syncope Cardiology Consult p2 04/13 Dr Chaves She has moderate daily fatigue. 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 All Rights Reserved [email or web address]
--- NOTE | 2019-04-18 02:37 | DIS ---
DATE OF ADMISSION: 04/12/2019 DATE OF DISCHARGE: 04/16/2019 HOSPITAL COURSE: Ms. Sanchez is a 63-year-old female, who presented with syncope. During her inpatient stay, she was found to have nonsustained episodes of polymorphic ventricular tachycardia during which symptoms precipitated. Cardiology evaluated the patient and placed a biventricular pacemaker defibrillator, as well as adjusted her medication. The patient was discharged hemodynamically stable and asymptomatic with followup appointments with Cardiology. Vitals were unremarkable. PHYSICAL EXAMINATION: GENERAL: She was in no apparent distress. Alert and oriented x3. CARDIAC EXAMINATION: Regular rate and rhythm. No murmurs or gallops infusion overlying the pacemaker looks clean and noninfected without significant hematoma. LUNGS: Clear to auscultation bilaterally. No rales, rhonchi, or wheezing. ABDOMEN: Soft, nontender, and nondistended. Normal bowel sounds. MUSCULOSKELETAL: No bilateral lower extremity edema. NEUROLOGIC: Proper mood and affect. Alert and oriented x3. ASSESSMENT AND PLAN: Ms. Sanchez is a 63-year-old female, who presented with symptomatic nonsustained polymorphic ventricular tachycardia. A pacemaker with defibrillator was placed and the patient was observed overnight. The patient's symptoms have resolved and she was discharged home hemodynamically stable with followup appointments with Cardiology, as well as her primary care physician. Job ID: [id number]
== END 2019-04-16 15:37 | disposition home or self-care (01) | DRG 225 ==
LOC: ERS 21:12 → CCU 22:39
PROVIDERS: ADMIT Internal Medicine; ATTEND Internal Medicine
PROC: 4A023N7 Measurement of Cardiac Sampling and Pressure, Left Heart, Percutaneous Approach (ICD-10-PCS; principal; 2019-04-15)
PROC: B2111ZZ Fluoroscopy of Multiple Coronary Arteries using Low Osmolar Contrast (ICD-10-PCS; 2019-04-15)
PROC: B2151ZZ Fluoroscopy of Left Heart using Low Osmolar Contrast (ICD-10-PCS; 2019-04-15)
PROC: 0JH609Z Insertion of Cardiac Resynchronization Defibrillator Pulse Generator into Chest Subcutaneous Tissue and Fascia, Open Approach (ICD-10-PCS; 2019-04-15)
PROC: 02HL3KZ Insertion of Defibrillator Lead into Left Ventricle, Percutaneous Approach (ICD-10-PCS; 2019-04-15)
PROC: 02HK3KZ Insertion of Defibrillator Lead into Right Ventricle, Percutaneous Approach (ICD-10-PCS; 2019-04-15)
PROC: 02H63KZ Insertion of Defibrillator Lead into Right Atrium, Percutaneous Approach (ICD-10-PCS; 2019-04-15)
DX: I47.2 Ventricular tachycardia (principal); I50.22 Chronic systolic (congestive) heart failure; I42.9 Cardiomyopathy, unspecified; E78.5 Hyperlipidemia, unspecified; E78.00 Pure hypercholesterolemia, unspecified; I44.7 Left bundle-branch block, unspecified; E66.9 Obesity, unspecified; I10 Essential (primary) hypertension; I49.5 Sick sinus syndrome; G47.33 Obstructive sleep apnea (adult) (pediatric); Z79.899 Other long term (current) drug therapy; Z90.710 Acquired absence of both cervix and uterus; Z68.36 Body mass index [BMI] 36.0-36.9, adult
CPT/HCPCS: 33225; 33249; 36005; 36415; 36416; 70450; 71045; 75820; 80048; 80053; 80061; 82550; 83735; 83880; 84484; 85025; 85347; 85610; 93005; 93010; 93306; 93458; 93798; 96365; 96376; 99152; C1769; C1777; C1882; C1898; C1900; J0282; J0360; J0690; J1580; J1644; J1650; J2001; J2250; J2370; J2704; J3010; J3475; J7070; Q9967

== ENCOUNTER 2019-06-22 11:35 | Emergency (ER) | payer OTHER ==
[2019-06-22 12:25] LABS: #Basophils 0.1 thou/uL (0.0-0.2); #Eosinphils 0.1 thou/uL (0.0-0.7); #Lymphocytes 2.5 thou/uL (1.20-3.40); #Monocytes 0.7 thou/uL (0.11-0.59); #Neutrophils 3.1 thou/uL (1.40-6.50); %Basophils 1.2 % (0.0-1.0); %Eosinophils 2.1 % (0.0-10.0); %Lymphocytes 38.6 % (21.0-51.0); %Monocytes 11.2 % (0.0-10.0); %Neutrophils 46.9 % (42.0-75.0); Hemoglobin 14.2 g/dL (12.0-16.0); Mean Corpuscular HGB CONC 32.4 g/dL (32.0-36.0); Mean Corpuscular Hemoglobin 31.3 pg (27.0-31.0); Mean Corpuscular Volume 96.7 fL (78.0-98.0); Mean Platelet Volume 8.7 fL (7.4-10.4); Platelet Count 246 thou/uL (130-400); RBC Distribution Width 12.2 % (11.5-14.5); Red Blood Cell (RBC) Count 4.54 mill/uL (4.20-5.40); White Blood Cell (WBC) Count 6.5 thou/uL (4.8-10.8)
--- NOTE | 2019-06-22 12:38 | RAD ---
CHEST TWO VIEWS: HISTORY: Difficulty controlling blood pressure. COMPARISON: 04/15/19 FINDINGS: Two views of the chest show a normal sized cardiomediastinal silhouette. The pacemaker is unchanged i n position. There is no evidence of consolidation, mass or pleural effusion. Degenerative changes are seen in the spine. IMPRESSION: No evidence of acute cardiopulmonary disease. POS: [facility]
[2019-06-22 12:48] LABS: ALT (SGPT) 23 U/L (8-55); AST (SGOT) 20 U/L (5-34); Albumin 4.2 g/dL (3.4-4.8); Alkaline Phosphatase 107 U/L (40-110); Anion Gap 9 mmol/L (10-20); BUN (Urea Nitrogen) 8 mg/dL (9.8-20.1); Bilirubin, Total 0.5 mg/dL (0.2-1.2); Calc. Creatinine Clearance 0 mL/min (70-130); Calcium 10.9 mg/dL (7.8-10.44); Carbon Dioxide 26 mmol/L (23-31); Chloride 107 mmol/L (98-107); Estimated GFR-MDRD 78; Globulin 3.6 g/dL (2.4-3.5); Glucose 91 mg/dL (80-115); Potassium 4.4 mmol/L (3.5-5.1); Protein, Total 7.8 g/dL (6.0-8.3); Sodium 138 mmol/L (136-145)
[2019-06-22] MEDS ORDERED: diphenhydrAMINE 25 MG CAP ONE (13:24)
[2019-06-22] MEDS ORDERED: Metoclopramide HCl 10 MG/2 ML VIAL ONE (13:25)
[2019-06-22] MEDS ORDERED: Ketorolac Tromethamine 30 MG/ML VIAL ONE (13:25)
[2019-06-22] MEDS ORDERED: Metoclopramide HCl 10 MG TAB ONE (13:27)
[2019-06-22 15:42] LABS: Troponin I Less than 0.010 ng/mL (< 0.028)
== END 2019-06-22 15:58 | disposition home or self-care (01) ==
LOC: ERS 11:35
DX: R00.2 Palpitations (principal); E78.5 Hyperlipidemia, unspecified; E78.00 Pure hypercholesterolemia, unspecified; F32.9 Major depressive disorder, single episode, unspecified; Z79.899 Other long term (current) drug therapy
CPT/HCPCS: 36415; 71046; 80053; 84484; 85025; 93005; 96372; J1885; J2765; Q0163

== ENCOUNTER 2023-02-25 21:05 | Observation (INO) | payer MEDICARE, OTHER ==
[2023-02-25] MEDS ORDERED: hydrALAZINE 20 MG/ML VIAL SLOW IVP PRN (23:28)
[2023-02-25] MEDS ORDERED: Acetaminophen 325 MG TAB PO PRN (23:28)
[2023-02-25] MEDS ORDERED: Ondansetron ODT 4 MG TAB PO PRN (23:28)
[2023-02-25] MEDS ORDERED: Ondansetron PF 4 MG/2 ML Vial IVP PRN (23:28)
[2023-02-25 23:29] VITALS: BMI 32.9
[2023-02-25] MEDS ORDERED: Aspirin Chewable 81 MG TAB PO SCH (23:59)
[2023-02-26 04:25] LABS: #Basophils 0.1 thou/uL (0.0-0.2); #Eosinphils 0.2 thou/uL (0.0-0.7); #Monocytes 0.9 thou/uL (0.11-0.59); %Basophils 0.7 % (0.0-1.0); %Eosinophils 2.5 % (0.0-10.0); %Lymphocytes 42.9 % (21.0-51.0); %Monocytes 11.8 % (0.0-10.0); %Neutrophils 41.8 % (42.0-75.0); Hematocrit 40.1 % (36.0-47.0); Hemoglobin 12.9 g/dL (12.0-16.0); Mean Corpuscular HGB CONC 32.2 g/dL (32.0-36.0); Mean Corpuscular Hemoglobin 31.4 pg (27.0-31.0); Mean Corpuscular Volume 97.6 fl (78.0-98.0); Mean Platelet Volume 10.8 fL (7.4-10.4); Platelet Count 240 10x3/uL (130-400); RBC Distribution Width 12.7 % (11.5-14.5); Red Blood Cell (RBC) Count 4.11 mill/uL (4.20-5.40); White Blood Cell (WBC) Count 7.2 10x3/uL (4.8-10.8)
[2023-02-26 04:50] LABS: Anion Gap 13 mmol/L (10-20); BUN (Urea Nitrogen) 7 mg/dL (9.8-20.1); Calc. Creatinine Clearance 110 mL/min (70-130); Carbon Dioxide 23 mmol/L (23-31); Cardiac Risk 3.9 (Less than 4.5); Chloride 108 mmol/L (98-107); Cholesterol 217 mg/dl (< 200 Desired); Estimated GFR 95; Glucose 77 mg/dL (80-115); HDL Cholesterol 55 mg/dL (>60 Neg Risk); LDL Cholesterol, Calculated 142 mg/dL; Potassium 3.8 mmol/L (3.5-5.1); Sodium 140 mmol/L (136-145); Triglycerides 102 mg/dL (Less than 150)
[2023-02-26 08:43] LABS: Magnesium 2.1 mg/dL (1.6-2.6)
[2023-02-26] MEDS: Aspirin 81 mg Enteric Coated Tablet PO SCH (09:12)
[2023-02-27 05:18] LABS: #Basophils 0.1 thou/uL (0.0-0.2); #Eosinphils 0.2 thou/uL (0.0-0.7); #Monocytes 0.8 thou/uL (0.11-0.59); #Neutrophils 2.9 thou/uL (1.40-6.50); %Eosinophils 2.7 % (0.0-10.0); %Lymphocytes 37.7 % (21.0-51.0); %Monocytes 12.8 % (0.0-10.0); %Neutrophils 45.5 % (42.0-75.0); Hematocrit 41.1 % (36.0-47.0); Hemoglobin 13.2 g/dL (12.0-16.0); Mean Corpuscular HGB CONC 32.1 g/dL (32.0-36.0); Mean Corpuscular Hemoglobin 31.6 pg (27.0-31.0); Mean Corpuscular Volume 98.3 fl (78.0-98.0); Mean Platelet Volume 10.7 fL (7.4-10.4); Platelet Count 235 10x3/uL (130-400); RBC Distribution Width 12.9 % (11.5-14.5); Red Blood Cell (RBC) Count 4.18 mill/uL (4.20-5.40); White Blood Cell (WBC) Count 6.3 10x3/uL (4.8-10.8)
[2023-02-27 05:40] LABS: Anion Gap 14 mmol/L (10-20); BUN (Urea Nitrogen) 13 mg/dL (9.8-20.1); Calc. Creatinine Clearance 103 mL/min (70-130); Carbon Dioxide 23 mmol/L (23-31); Chloride 106 mmol/L (98-107); Estimated GFR 90; Glucose 84 mg/dL (80-115); Magnesium 2.1 mg/dL (1.6-2.6); Potassium 3.8 mmol/L (3.5-5.1); Sodium 139 mmol/L (136-145)
[2023-02-27] MEDS ORDERED: Carvedilol 25 MG TAB PO SCH (09:00)
[2023-02-27] MEDS ORDERED: Atorvastatin Calcium 10 MG TAB PO SCH (09:00)
[2023-02-27] MEDS ORDERED: Lisinopril 20 MG TAB PO SCH (09:00)
[2023-02-27] MEDS: Aspirin 81 mg Enteric Coated Tablet PO SCH (10:20)
[2023-02-27 12:19] VITALS: BP 138/79; TEMP 98.4
== END 2023-02-27 16:50 | disposition home or self-care (01) ==
LOC: 2SE 23:25
PROVIDERS: ADMIT Student in an Organized Health Care Education/Training Program; ATTEND Internal Medicine
DX: R55 Syncope and collapse (principal); I49.5 Sick sinus syndrome; I10 Essential (primary) hypertension; I47.20 Ventricular tachycardia, unspecified; Z95.0 Presence of cardiac pacemaker; Z79.899 Other long term (current) drug therapy; Z90.710 Acquired absence of both cervix and uterus; Z79.82 Long term (current) use of aspirin
CPT/HCPCS: 70450; 70551; 71045; 80048 ×2; 80053; 80061; 81001; 83735 ×3; 83880; 84484; 85025 ×3; 93005; 93306; 93880; 99285; G0378 ×3; 36415